=== PATIENT | male | born 2000 | race Caucasian/White ===

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

== ENCOUNTER 2023-08-26 20:06 | Emergency (ER) | payer BC ==
[2023-08-26] MEDS ORDERED: Lidocaine 2% 20 ML MDV INFILT ONE (20:07)
== END 2023-08-26 20:45 | disposition home or self-care (01) ==
LOC: FB.ED 20:06
DX: S91.112A Laceration without foreign body of left great toe without damage to nail, initial encounter (principal); W26.0XXA Contact with knife, initial encounter
CPT/HCPCS: 12002; 99282